=== PATIENT | female | born 1980 | race Caucasian/White ===

== ENCOUNTER 2016-12-15 14:30 | Observation (INO) | payer BC, OTHER ==
[2016-12-15] MEDS ORDERED: ONDANSETRON HCL 4 MG/2 ML SOL IV ONE ×4 (14:33→20:08)
[2016-12-15] MEDS ORDERED: HYDROMORPHONE HCL 2 MG/ML SOL IV ONE ×2 (14:33→17:21)
[2016-12-15] MEDS ORDERED: ONDANSETRON HCL 4 MG/2 ML SOL ONE ×3 (14:36→19:58)
[2016-12-15] MEDS ORDERED: HYDROMORPHONE HCL 2 MG/ML SOL ONE ×2 (14:36→17:22)
[2016-12-15 14:49] LABS: BASOPHILS % (AUTO) 1 % (0-3); EOSINOPHILS % (AUTO) 4 % (0-9); HEMATOCRIT 38 % (35-47); MEAN CORPUSCULAR VOLUME 84 fL (81-99); MONOCYTES % (AUTO) 4.8 % (0-12); NEUTROPHILS % (AUTO) 67.2 % (37-80)
[2016-12-15 15:04] LABS: ALBUMIN 3.9 gm/dl (3.4-5.0); POTASSIUM 3.3 mMol/L (3.5-5.1)
[2016-12-15] MEDS ORDERED: POTASSIUM CHLORIDE 10 MEQ TER PO ONE (15:15)
[2016-12-15] MEDS: SODIUM CHLORIDE 0.9% 1000ML 1,000 ML IV SCH ×4 (15:15→18:18)
[2016-12-15] MEDS ORDERED: POTASSIUM CHLORIDE 10 MEQ TER ONE (15:17)
[2016-12-15] MEDS ORDERED: KETOROLAC TROMETHAMINE 30 MG/ML SOL IV ONE (16:04)
[2016-12-15] MEDS ORDERED: KETOROLAC TROMETHAMINE 30 MG/ML SOL ONE (16:05)
[2016-12-15] MEDS ORDERED: SODIUM CHLORIDE 0.9% 1000ML 1,000 ML IV ONE (18:18)
[2016-12-15] MEDS ORDERED: DICYCLOMINE HCL 20 MG TAB PO ONE (18:19)
[2016-12-15] MEDS ORDERED: MAGNESIUM CITRATE SOL PO PRN (18:43)
[2016-12-15] MEDS ORDERED: MAGNESIUM CITRATE SOL ONE (19:53)
[2016-12-15] MEDS ORDERED: ONDANSETRON HCL 4 MG/2 ML SOL IV PRN (20:45)
[2016-12-15] MEDS ORDERED: PANTOPRAZOLE SODIUM 40 MG/10 ML PDS IV ONE (20:49)
[2016-12-15] MEDS: DEXTROSE/SALINE 0.45/KCL 20MEQ 1,000 ML/1,000 ML SOL IV SCH (21:32)
[2016-12-15] MEDS: PROMETHAZINE HYDROCHLORIDE 25 MG/ML SOL IV PRN (21:32)
[2016-12-15] MEDS: KETOROLAC TROMETHAMINE 30 MG/ML SOL IV PRN (21:32)
[2016-12-16] MEDS ORDERED: [UNRECOGNIZED DRUG - OTHER] IM PRN (00:10)
[2016-12-16] MEDS ORDERED: ONDANSETRON HCL IV PRN (00:12)
[2016-12-16] MEDS ORDERED: SODIUM CHLORIDE 0.9% IV PRN (00:12)
[2016-12-16] MEDS: HYDROMORPHONE HCL 2 MG/ML SOL IV PRN ×2 (00:21→07:39)
[2016-12-16] MEDS: DEXTROSE/SALINE 0.45/KCL 20MEQ 1,000 ML/1,000 ML SOL IV SCH ×3 (04:29→23:06)
[2016-12-16] MEDS: KETOROLAC TROMETHAMINE 30 MG/ML SOL IV PRN ×5 (04:51→22:30)
[2016-12-16] MEDS: APAP/HYDROCODONE 325/5 TAB PO PRN (05:38)
[2016-12-16 07:24] LABS: BASOPHILS % (AUTO) 0 % (0-3); EOSINOPHILS % (AUTO) 3 % (0-9); HEMATOCRIT 34 % (35-47); MEAN CORPUSCULAR HGB CONC 36.3 gm/dl (32.0-36.0); MEAN CORPUSCULAR VOLUME 86 fL (81-99); MONOCYTES % (AUTO) 4.5 % (0-12)
[2016-12-16 07:41] LABS: ALBUMIN 3.1 gm/dl (3.4-5.0); POTASSIUM 4.4 mMol/L (3.5-5.1)
[2016-12-16] MEDS: PROMETHAZINE HYDROCHLORIDE 25 MG/ML SOL IV PRN (07:50)
[2016-12-16] MEDS: SODIUM CHLORIDE 0.9% FLUSH 10 ML SOL IV PRN ×2 (09:47→22:31)
[2016-12-16 11:41] LABS: APPEARANCE,URINE Clear; BILIRUBIN,URINE NEGATIVE (NEGATIVE); COLOR,URINE Yellow; GLUCOSE, URINE (UA) NEGATIVE (NEGATIVE); KETONES,URINE NEGATIVE (NEGATIVE); LEUKOCYTE ESTERASE ,URINE NEGATIVE (NEGATIVE); NITRATE,URINE NEGATIVE (NEGATIVE); OCCULT BLOOD,URINE 3+ (NEG-TRACE); UROBILINOGEN,URINE 0.2 (0.2-1.0 EU)
[2016-12-16 12:14] LABS: RBC,URINE 115-130 (0-3AV/HPF)
[2016-12-16 12:15] LABS: WBC,URINE 90-110 (0-5AV/HPF)
[2016-12-16] MEDS ORDERED: ONDANSETRON HCL 4 MG TAB PO PRN (19:56)
[2016-12-16] MEDS: DOCUSATE SODIUM 100 MG SGL PO SCH (22:23)
[2016-12-17] MEDS: SODIUM CHLORIDE 0.9% FLUSH 10 ML SOL IV PRN ×2 (02:09→09:56)
[2016-12-17] MEDS: KETOROLAC TROMETHAMINE 30 MG/ML SOL IV PRN (02:10)
[2016-12-17] MEDS: PROMETHAZINE HYDROCHLORIDE 25 MG/ML SOL IV PRN (05:30)
[2016-12-17] MEDS: HYDROMORPHONE HCL 2 MG/ML SOL IV PRN (05:30)
[2016-12-17 08:19] VITALS: BP 108/70; PULSE 76; RESP 18; TEMP 97; O2SAT 99
[2016-12-17] MEDS: DOCUSATE SODIUM 100 MG SGL PO SCH (08:51)
[2016-12-17] MEDS: APAP/HYDROCODONE 325/5 TAB PO PRN ×2 (09:50→12:56)
[2016-12-17] MEDS: DEXTROSE/SALINE 0.45/KCL 20MEQ 1,000 ML/1,000 ML SOL IV SCH (12:43)
== END 2016-12-17 15:50 | disposition home or self-care (01) | DRG 700 ==
LOC: ED 14:30 → ACUTE CARE 20:13
PROVIDERS: ADMIT Family Medicine; ATTEND Family Medicine
DX: S37.20XA Unspecified injury of bladder, initial encounter (principal); E86.0 Dehydration; Y83.6 Removal of other organ (partial) (total) as the cause of abnormal reaction of the patient, or of later complication, without mention of misadventure at the time of the procedure; Y76.3 Surgical instruments, materials and obstetric and gynecological devices (including sutures) associated with adverse incidents; Y92.234 Operating room of hospital as the place of occurrence of the external cause; G89.18 Other acute postprocedural pain; E87.6 Hypokalemia; K59.00 Constipation, unspecified; Z90.710 Acquired absence of both cervix and uterus; Z90.79 Acquired absence of other genital organ(s)
CPT/HCPCS: 36415; 51798; 74020; 74176; 74177; 80053; 81001; 82150; 85025; 96365; 96366; 96374; 96375; 99219; 99285; J1170; J1885; J2405; J2550; J3250; Q9967